=== PATIENT | female | born 1960 | race African-American/Black ===

== ENCOUNTER 2016-03-22 06:27 | Day surgery (SDC) | payer OTHER ==
[~2016-03-22] VITALS: Ht 170.2 cm; Wt 68.2 kg
[~2016-03-22 06:27] MED LIST: AMITRIPTYLINE H25 M1 PO; BACTRIM DS 8001 TAB PO; DOXYCYCLINE 10100 MG PO; IRON325 MG PO; PRENATAL FORMU1 EAC3 PO; TYLENOL W/COD1 UDTAB PO
[2016-03-22 07:18] VITALS: BP 132/93; PULSE 89; TEMP 98.5
[2016-03-22] MEDS ORDERED: ALEVE 220MG220 MG PO (07:22)
[2016-03-22 08:40] VITALS: BP 128/96; PULSE 97; TEMP 97.4
[2016-03-22 08:55] VITALS: BP 129/94; PULSE 97
[2016-03-22 09:10] VITALS: BP 131/96; PULSE 92
[2016-03-22 11:31] VITALS: BP 120/92; PULSE 88
== END 2016-03-22 09:30 | disposition home or self-care (01) ==
LOC: SDCO 06:27
DX: K52.9 Noninfective gastroenteritis and colitis, unspecified (principal); K63.3 Ulcer of intestine; D64.9 Anemia, unspecified; I10 Essential (primary) hypertension
CPT/HCPCS: OP; J2250; J2405; J3010; J7030

== ENCOUNTER 2016-04-26 07:07 | Day surgery (SDC) | payer OTHER ==
[~2016-04-26] VITALS: Ht 170.2 cm; Wt 67.1 kg
[~2016-04-26 07:07] MED LIST changes: +ALEVE 220MG220 MG PO
[2016-04-26 07:34] VITALS: BP 124/89; PULSE 92; TEMP 97.8
[2016-04-26] MEDS ORDERED: BACTRIM DS 8001 TAB PO (07:44)
[2016-04-26 08:42] VITALS: BP 110/76; PULSE 98
== END 2016-04-26 09:34 | disposition home or self-care (01) ==
LOC: SDCO 07:07
DX: K52.9 Noninfective gastroenteritis and colitis, unspecified (principal); R19.5 Other fecal abnormalities
CPT/HCPCS: OP; J2250; J3010; J7030

== ENCOUNTER → 2017-05-02 | Outpatient (CLI) | payer OTHER | LOC: MC.RAD 14:10 | DX: Z12.31 Encounter for screening mammogram for malignant neoplasm of breast (principal) ==

== ENCOUNTER 2017-09-12 13:45 | Outpatient (RCR) | payer OTHER | END 2017-09-23 14:18 | disposition home or self-care (01) | LOC: WSPT 13:45 | DX: Z47.89 Encounter for other orthopedic aftercare (principal) ==

== ENCOUNTER 2017-12-02 14:15 | Outpatient (RCR) | payer OTHER | END 2017-12-16 10:37 | disposition home or self-care (01) | LOC: WSPT 14:15 | DX: Z47.89 Encounter for other orthopedic aftercare (principal) ==

== ENCOUNTER 2017-12-19 13:25 | Outpatient (CLI) | payer OTHER ==
[2017-12-19 14:25] LABS: BASO % 0.4 % (0.0-2.0); EOS # 0.1 (0.0-0.7); EOS % 1.4 % (0-4.0); GRAN # 5.6 (1.4-6.5); GRAN % 70.4 % (42.2-75.2); LYMPH # 1.8 (1.2-3.4); MEAN CELL VOLUME 69 fl (80.0-100.0); MEAN CORPUSCULAR HGB CONC 27 g/dl (33.0-37.0); MEAN PLATELET VOLUME 8.6 fl (7.4-10.4); MONO # 0.4 (0.1-0.6); MONO % 5.3 % (1.7-9.3); PLATELET COUNT 704 K/mm3 (130-400); REDCELL DISTRIBUTION WIDTH-CV 20.5 % (11.5-14.5); RETIC # 0.07 M/mm3 (0.02-0.16); RETIC % 2.2 % (0.5-3.52)
[2017-12-19] MEDS ORDERED: RELAFEN 50500 MG/TAB PO (14:25)
[2017-12-19] MEDS ORDERED: VITAMINC250CH (14:26)
[2017-12-19] MEDS ORDERED: [UNRECOGNIZED DRUG - OTHER] (14:27)
[2017-12-19] MEDS ORDERED: TYLENOL 325MG325 MG PO (14:28)
[2017-12-19 14:32] LABS: HEMATOCRIT 22.8 % (37.0-47.0); HEMOGLOBIN 6.2 g/dl (12.5-16.0); MEAN CORPUSCULAR HEMOGLOBIN 19 pg (27.0-31.0)
[2017-12-19 14:35] VITALS: BP 149/70; PULSE 113; TEMP 97.9
[2017-12-19 14:38] LABS: C-REACTIVE PROTEIN 6.2 mg/dL (0.0-0.9)
[2017-12-19 14:46] LABS: ERYTHROCYTE SEDIMENTATION RATE 121 mm/hr (0-30)
[2017-12-19 16:30] VITALS: BP 133/72; PULSE 112
[2017-12-19 17:00] VITALS: BP 134/68; PULSE 14
[2017-12-19 17:30] VITALS: BP 132/87; PULSE 114
[2017-12-19 18:00] VITALS: BP 135/82; PULSE 113
[2017-12-19 23:39] LABS: FOLATE (FOLIC ACID) 16.5 ng/mL (7.0-31.4)
[2017-12-22 15:19] LABS: HEMOGLOBIN A1 97.7 % (94.5-99.5); HEMOGLOBIN A2 2.3 % (0.0-3.5); HEMOGLOBIN F <2.0 % (0.0-2.0)
== END 2017-12-19 18:09 | disposition home or self-care (01) ==
LOC: EUO 13:25
PROVIDERS: Family Medicine
DX: D50.9 Iron deficiency anemia, unspecified (principal); K51.90 Ulcerative colitis, unspecified, without complications; E53.8 Deficiency of other specified B group vitamins
CPT/HCPCS: J2916

== ENCOUNTER → 2018-09-01 | Outpatient (CLI) | payer OTHER ==
[~2018-09-01] MED LIST changes: +RELAFEN 50500 MG/TAB PO; +TYLENOL 325MG325 MG PO; +VITAMINC250CH; +[UNRECOGNIZED DRUG - OTHER]
[2018-09-01 08:58] LABS: MEAN CELL VOLUME 79 fl (80.0-100.0); MEAN CORPUSCULAR HGB CONC 33 g/dl (33.0-37.0); MEAN PLATELET VOLUME 8.1 fl (7.4-10.4); PLATELET COUNT 478 K/mm3 (130-400); RED BLOOD COUNT 3.38 M/mm3 (4.10-5.30)
[2018-09-01 08:59] LABS: HEMATOCRIT 26.8 % (37.0-47.0); HEMOGLOBIN 8.8 g/dl (12.5-16.0); MEAN CORPUSCULAR HEMOGLOBIN 26 pg (27.0-31.0)
== END ==
LOC: COL.LAB 08:25
PROVIDERS: Physician Assistant Medical
DX: L03.90 Cellulitis, unspecified (principal)

== ENCOUNTER → 2018-09-03 | Outpatient (CLI) | payer OTHER ==
[2018-09-03 09:33] LABS: BASO % 0.3 % (0.0-2.0); EOS # 0.2 (0.0-0.7); EOS % 1.5 % (0-4.0); GRAN # 8.9 (1.4-6.5); LYMPH # 1.4 (1.2-3.4); LYMPH % 12.1 % (20.0-51.0); MEAN CELL VOLUME 83 fl (80.0-100.0); MEAN CORPUSCULAR HGB CONC 31 g/dl (33.0-37.0); MEAN PLATELET VOLUME 8.7 fl (7.4-10.4); MONO # 0.6 (0.1-0.6); MONO % 5.7 % (1.7-9.3); PLATELET COUNT 479 K/mm3 (130-400); RED BLOOD COUNT 3.27 M/mm3 (4.10-5.30); REDCELL DISTRIBUTION WIDTH-CV 17.3 % (11.5-14.5)
[2018-09-03 09:39] LABS: HEMATOCRIT 27.1 % (37.0-47.0); HEMOGLOBIN 8.4 g/dl (12.5-16.0); MEAN CORPUSCULAR HEMOGLOBIN 26 pg (27.0-31.0)
[2018-09-03 10:47] LABS: ERYTHROCYTE SEDIMENTATION RATE > 140 mm/hr (0-30)
[2018-09-03 16:16] LABS: C-REACTIVE PROTEIN 21.6 mg/dL (0.0-0.9)
== END ==
LOC: COL.LAB 08:48
PROVIDERS: Physician Assistant Medical
DX: L03.90 Cellulitis, unspecified (principal)

== ENCOUNTER 2018-09-25 13:21 | Outpatient (CLI) | payer OTHER ==
[~2018-09-25] VITALS: Ht 170.2 cm; Wt 65.0 kg
[~2018-09-25 13:21] MED LIST changes: -IRON325 MG PO; +NATURAL IRON65 MG PO
[2018-09-25 13:30] VITALS: BP 115/67; PULSE 111; TEMP 98.6
[2018-09-25] MEDS ORDERED: TYLENOL W/COD1 UDTAB PO (13:51)
[2018-09-25] MEDS ORDERED: PROBIOTIC FORMU1 CAP PO (13:52)
[2018-09-25] MEDS ORDERED: B-121000 MCG PO (13:54)
[2018-09-25] MEDS ORDERED: PRENATAL PO (13:54)
[2018-09-25] MEDS ORDERED: FOLIC ACID 11 MG/TA1 PO (13:55)
[2018-09-25] MEDS ORDERED: LIALDA 1.2 GM1.2 GM PO (13:55)
== END 2018-09-25 15:02 | disposition home or self-care (01) ==
LOC: EUO 13:21
DX: D50.9 Iron deficiency anemia, unspecified (principal)
CPT/HCPCS: J2916